=== PATIENT | male | born 1995 | race African-American/Black ===

== ENCOUNTER 2017-07-10 19:09 | Emergency (ER) | payer OTHER ==
[~2017-07-10] VITALS: Ht 180.3 cm; Wt 100.7 kg
[~2017-07-10 19:09] MED LIST: OMEPRAZOLE40 MG PO
[2017-07-10] MEDS ORDERED: ONDANSETRON HCL 4 MG ORAL DISINTEGRATING TAB PO STA (19:19)
[2017-07-10 19:41] LABS: STREPTOCOCCUS GRP A ANTIGEN NEGATIVE (NEGATIVE)
[2017-07-10 19:51] LABS: INFLUENZAE A&B ANTIGEN (RAPID) NEGATIVE (NEGATIVE)
--- NOTE | 2017-07-10 20:30 | Diagnostic Imaging Report ---
Frontal and lateral views of the chest. HISTORY: Congestion, dizziness, nonproductive cough COMPARISON: None available. DISCUSSION: Lungs: The lungs are well inflated. No evidence of a consolidative pneumonia or pulmonary alveolar edema. Pleura: No pleural effusion or pneumothorax. Heart and mediastinum: The cardiomediastinal silhouette appears unremarkable. Bones: No acute osseous lesion. IMPRESSION: No acute radiographic abnormality. Signed by: Dr. Anuj Hou D.O., M.M.M. on 07/10/2017 8:27 PM
[2017-07-10 21:07] VITALS: BP 134/79
== END 2017-07-10 21:16 | disposition home or self-care (01) ==
LOC: ER 19:09
DX: J20.9 Acute bronchitis, unspecified (principal); K21.9 Gastro-esophageal reflux disease without esophagitis
CPT/HCPCS: 71046; 83518; 87070; 87400; 99283

== ENCOUNTER 2020-08-03 21:22 | Emergency (ER) | payer BC, OTHER ==
[~2020-08-03] VITALS: Ht 180.3 cm; Wt 100.7 kg
== END 2020-08-03 23:15 | disposition home or self-care (01) ==
LOC: ER 22:08
DX: S43.401A Unspecified sprain of right shoulder joint, initial encounter (principal); M25.562 Pain in left knee; V23.4XXA Motorcycle driver injured in collision with car, pick-up truck or van in traffic accident, initial encounter; Y92.488 Other paved roadways as the place of occurrence of the external cause; K21.9 Gastro-esophageal reflux disease without esophagitis
CPT/HCPCS: 99283

== ENCOUNTER 2021-04-04 08:04 | Emergency (ER) | payer BC ==
[~2021-04-04] VITALS: Ht 180.3 cm; Wt 100.7 kg
== END 2021-04-04 09:25 | disposition home or self-care (01) ==
LOC: ER 09:00
DX: M23.91 Unspecified internal derangement of right knee (principal); K21.9 Gastro-esophageal reflux disease without esophagitis
CPT/HCPCS: 99283